=== PATIENT | female | born 1990 | race Caucasian/White ===

== ENCOUNTER 2018-06-09 12:14 | Emergency (ER) | payer SELFPAY ==
--- NOTE | 2018-06-09 13:13 | UC ---
Skin Complaint HPI - HPI Summary HPI Summary: Patient has been self treating 2 lesions on the left leg with tramcinolone cream with no improvement. the area is itchy and now raised. - History of Current Complaint Chief Complaint: UCRash Time Seen by Provider: 06/09/18 13:07 Stated Complaint: RASH L LEG Hx Obtained From: Patient ?: No Onset/Duration: Gradual Onset, Lasting Weeks Skin Exposure Onset/Duration: Weeks Ago Timing: Constant Onset Severity: Mild Current Severity: Moderate Pain Intensity: 0 Location: Discrete Character: Pruritus, Redness, Raised, Painful Aggravating Factor(s): Nothing Alleviating Factor(s): Nothing - Allergy/Home Medications Allergies/Adverse Reactions: Allergies Allergy/AdvReac Type Severity Reaction Status Date / Time No Known Allergies Allergy Verified 06/09/18 13:04 Review of Systems Constitutional: Negative Skin: Rash Eyes: Negative ENT: Negative Respiratory: Negative Cardiovascular: Negative Gastrointestinal: Negative Genitourinary: Negative Motor: Negative Neurovascular: Negative Musculoskeletal: Negative Neurological: Negative Psychological: Negative Is Patient Immunocompromised?: No All Other Systems Reviewed And Are Negative: Yes PMH/Surg Hx/FS Hx/Imm Hx Previously Healthy: Yes - Surgical History Surgical History: None - Family History Known Family History: Positive: Hypertension - Social History Alcohol Use: Weekly Substance Use Type: None Smoking Status (MU): Never Smoked Tobacco - Immunization History Most Recent Influenza Vaccination: pt doesn't know Most Recent Tetanus Shot: pt doesn't know Most Recent Pneumonia Vaccination: pt doesn't know Physical Exam Triage Information Reviewed: Yes Appearance: Well-Appearing, Well-Nourished, Pain Distress Vital Signs: Initial Vital Signs Temp 97.9 F 06/09/18 13:02 Pulse 88 06/09/18 13:02 Resp 18 06/09/18 13:02 BP 150/101 06/09/18 13:02 Pulse Ox 100 06/09/18 13:02 Vital Signs Reviewed: Yes Eye Exam: Normal ENT Exam: Normal Dental Exam: Normal Neck exam: Normal Neck: Positive: Supple, Nontender, No Lymphadenopathy Respiratory Exam: Normal Respiratory: Positive: Chest non-tender, Lungs clear, Normal breath sounds Cardiovascular Exam: Normal Cardiovascular: Positive: RRR, No Murmur, Pulses Normal Abdominal Exam: Normal Abdomen Description: Positive: Nontender, No Organomegaly, Soft Musculoskeletal Exam: Normal Neurological Exam: Normal Psychological Exam: Normal Skin: Positive: rashes - 2 large leasions, red edges with pale scaling centers Course/Dx - Course Course Of Treatment: hx obtained, exam performed ,meds reviewed, treated for ringworm - Differential Diagnoses - Skin Complaint Differential Diagnoses: Cellulitis, Contact Dermatitis, Tinea, Urticaria - Diagnoses Provider Diagnoses: tinea corporis Discharge - Sign-Out/Discharge Documenting (check all that apply): Patient Departure - Discharge Plan Condition: Stable Disposition: HOME Prescriptions: Fluconazole [Diflucan 150 MG (NF)] 150 mg PO WEEKLY #3 tab Patient Education Materials: Skin Yeast Infection (ED) Referrals: Janneth Navarrete MD [Primary Care Provider] - Additional Instructions: 1. take the difulcan 2. Use Coconut oil multiple times a day or Over the counter fungal cream, lamasil as directed 3. follow up if not improving. 4. Your blood pressure is very high, continue to monitor and follow up with your doctor to reassess. - Billing Disposition and Condition Condition: STABLE Disposition: Home
[2018-06-09 13:49] VITALS: BP 156/97
== END 2018-06-09 13:15 | disposition home or self-care (01) ==
LOC: UCEAST 12:14
DX: B35.4 Tinea corporis (principal)
CPT/HCPCS: 99212; G0463

== ENCOUNTER 2020-01-15 13:58 | Emergency (ER) | payer BC ==
--- NOTE | 2020-01-15 15:22 | ED ---
Abdominal Pain/Female - HPI Summary HPI Summary: 29 year old F presenting to [facility] complains of right sided abdominal pain rated 6/10 in severity that radiates into the middle of her abdomen when she ambulates x1 month. Had IUD placed May 2019. Developed abdominal pain one month ago. Had positive test today. . She has one son who was delivered vaginally by Dr. Santos. No complications with that . No vaginal bleeding currently. Symptoms aggravated by ambulation. Symptoms alleviated by nothing. Medications reviewed. Allergies noted. - History of Current Complaint Chief Complaint: EDOBProblems Stated Complaint: IUD/PREG W/PAIN PER PT Time Seen by Provider: 01/15/20 15:19 Hx Obtained From: Patient Onset/Duration: Lasting Weeks - 4, Still Present Timing: Constant Severity Currently: Moderate Pain Intensity: 6 Pain Scale Used: 0-10 Numeric Aggravating Factor(s): Nothing Alleviating Factor(s): Nothing Associated Signs and Symptoms: Negative: Vaginal Bleeding Allergies/Adverse Reactions: Allergies Allergy/AdvReac Type Severity Reaction Status Date / Time No Known Allergies Allergy Verified 01/15/20 14:04 Home Medications: Home Medications Fluconazole [Diflucan 150 MG (NF)] 150 mg PO WEEKLY #3 tab 06/09/18 [Rx] Cephalexin CAP* [Keflex CAP*] 500 mg PO BID 5 Days #10 cap 01/15/20 [Rx] PMH/Surg Hx/FS Hx/Imm Hx Endocrine/Hematology History: Denies: Hx Diabetes Respiratory History: Denies: Hx Asthma - Surgical History Surgical History: None Infectious Disease History: No Infectious Disease History: Denies: Traveled Outside the [place] in Last 30 Days - Family History Known Family History: Positive: Hypertension, Other - thyroid - Social History Alcohol Use: Weekly Substance Use Type: Reports: None Hx Tobacco Use: No Smoking Status (MU): Never Smoked Tobacco Review of Systems Positive: Abdominal Pain Genitourinary: Negative - vaginal bleeding All Other Systems Reviewed And Are Negative: Yes Physical Exam - Summary Physical Exam Summary: Constitutional: Well-developed, Well-nourished, Alert. (-) Distressed Skin: Warm, Dry HENT: Normocephalic; Atraumatic Eyes: Conjunctiva normal Neck: Musculoskeletal ROM normal neck. (-) JVD, (-) Stridor, (-) Nuchal rigidity Cardio: Rhythm regular, rate normal, Heart sounds normal; Intact distal pulses; Radial pulses are 2+ and symmetric. (-) Murmur Pulmonary/Chest wall: Effort normal. (-) Respiratory distress, (-) Wheezes, (-) Rales Abd: Soft, RLQ tenderness, (-) Distension, (-) Guarding, (-) Rebound Musculoskeletal: (-) Edema Lymph: (-) Cervical adenopathy Neuro: Alert, Oriented x3 Psych: Mood and affect Normal Triage Information Reviewed: Yes Vital Signs On Initial Exam: Initial Vitals Temp Pulse Resp BP Pulse Ox 98.6 F 79 16 165/121 99 01/15/20 14:00 01/15/20 14:00 01/15/20 14:00 01/15/20 14:00 01/15/20 14:00 Vital Signs Reviewed: Yes Procedures - Sedation Patient Received Moderate/Deep Sedation with Procedure: No Diagnostics - Vital Signs Vital Signs Temp Pulse Resp BP Pulse Ox 01/15/20 14:00 98.6 F 79 16 165/121 99 - Laboratory Result Diagrams: 01/15/20 15:33 01/15/20 15:33 Lab Statement: Any lab studies that have been ordered have been reviewed, and results considered in the medical decision making process. - Ultrasound Ultrasound Interpretation Completed By: Radiologist - IMPRESSION: There is a single intrauterine gestation with a gestational age of 24 weeks 0 days. Estimated date of delivery is May 06, 2020. survey is unremarkable. heart activity is noted at 153 bpm. Amniotic fluid is within normal limits. There is a fundal placenta without evidence of placenta previa. ED physician has reviewed this imaging report. Re-Evaluation - Re-Evaluation First Eval Re-Evaluation Time: 16:15 - Blood pressure 132/81 per aide Second Eval Re-Evaluation Time: 16:52 - Dr. Kinney recommends d/c and f/u with Dr. Santos Abdominal Pain Fem Course/Dx - Course Course Of Treatment: 29 y/o F p/w RLQ and generalized abdominal pain. - Exam well appearing, mild RLQ tenderness/lower abd tenderness. - US with 24 week IUP no IUD seen. Updated patient on results. Labs w mild leukocytosis likely 2/ 2 . UA w bacteruria. Do not suspect appendicitis. OB saw in ED, agree w outpatient plan. given keflex - Diagnoses Provider Diagnoses: Abdominal pain, , Bacteriuria - Provider Notifications Discussed Care Of Patient With: Kevin Kinney JR - Will speak to Dr. Santos. Time Discussed With Above Provider: 16:22 Discharge ED - Sign-Out/Discharge Documenting (check all that apply): Patient Departure - Discharge Plan Condition: Stable Disposition: HOME Prescriptions: Cephalexin CAP* [Keflex CAP*] 500 mg PO BID 5 Days #10 cap Patient Education Materials: (ED), Urinary Tract Infection in (ED) Referrals: Janneth Navarrete MD [Primary Care Provider] - Sukumar Santos MD [Medical Doctor] - Additional Instructions: You were seen in the emergency department for abdominal pain. You are 24 weeks Please follow-up with OB. Please follow up with your primary care doctor in next 2-3 days and return to emergency department for worsening abdominal pain, vaginal bleeding, fevers, or concerning symptoms. It was a pleasure taking care of you today. - Billing Disposition and Condition Condition: STABLE Disposition: Home - Attestation Statements Document Initiated by Scribe: Yes Documenting Scribe: Adriana Dean Provider For Whom Eveibe is Documenting (Include Credential): Caro Easley MD Scribe Attestation: I, Adriana Dean, scribed for Caro Easley MD on 01/15/20 at 1710. Scribe Documentation Reviewed: Yes Provider Attestation: The documentation as recorded by the Adriana blank accurately reflects the service I personally performed and the decisions made by me, Caro Easley MD Status of Scribe Document: Viewed
[2020-01-15 15:37] LABS: Urine Appearance Clear; Urine Bilirubin Negative (Negative); Urine Blood 1+ (Negative); Urine Color Yellow; Urine Glucose Negative (Negative); Urine Ketones Negative (Negative); Urine Nitrite Negative (Negative); Urine Protein Negative (Negative); Urine Urobilinogen Negative (Negative)
[2020-01-15 15:40] LABS: ABS Basophils 0.1 10^3/ul (0-0.2); ABS Eosinophils 0.2 10^3/ul (0-0.6); ABS Lymphocytes 2.2 10^3/ul (1.0-4.8); ABS Monocytes 0.6 10^3/ul (0-0.8); ABS Neutrophils 8.8 10^3/ul (1.5-7.7); Eosinophil % 1.7 %; Hematocrit 39 % (35-47); Hemoglobin 13.6 g/dL (12.0-16.0); Mean Corpuscular HGB Conc 35 g/dL (31-36); Mean Corpuscular Hemoglobin 31 pg (27-31); Mean Corpuscular Volume 88 fL (80-97); Nucleated Red Blood Cells % 0.1; Platelet Count 181 10^3/uL (150-450); Red Blood Count 4.44 10^6 /uL (3.70-4.87); Red Cell Distribution Width 14 % (10-15); White Blood Count 11.9 10^3/uL (3.5-10.8)
[2020-01-15 15:41] LABS: Urine Bacteria 1+ (Absent); Urine Red Blood Cell Trace(0-2/hpf) (Absent); Urine Squamous Epithelial Cell Present (Absent); Urine White Blood Cell Trace(0-5/hpf) (Absent)
--- OUTSIDE RECORDS SUMMARY | 2020-01-15 15:42 | XMS REPORT | Summary of Care ---
:1990 Author Organization [facility] Address [address] [facility] [place] [address] Care Team Providers Name Role Phone Darwinsirena Janneth Primary Care Provider Reason for Visit Reason Comments Surgical Followup Encounter Details Date Type Department Care Team Description 11/26/2019 Office Visit Mark PlasticSilver Mooney MD Surgical followup Surgery [address] [place] (Primary Dx) 1 [facility] [place] [address] [place] [id number] Allergies Active Allergy Reactions Severity Noted Date Comments No Known Drug Allergy 12/11/2007 documented as of this encounter (statuses as of 11/26/2019) Medications Medication Sig Dispensed Refills Start Date End Date Status OXYcodone-acetaminophe Take 1 Tab by 15 Tab 0 11/14/2019 Active n (PERCOCET) 5-325 MG mouth EVERY EIGHT Oral Tab HOURS NEEDED (pain). Max Daily Amount: 3 Tabs. cephalexin (KEFLEX) Take 1 Cap by 21 Cap 0 11/14/2019 Active 500 MG Oral Cap mouth THREE TIMES DAILY. 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 Ulnar collateral ligament sprain(841.1) 11/30/2010 Dislocation, elbow closed 11/30/2010 Migraine 12/11/2007 Seasonal allergies 12/11/2007 Asthma 12/11/2007 Hypertrophy of nasal turbinates 09/23/2007 Epistaxis 02/28/2007 documented as of this encounter (statuses as of 11/26/2019) Resolved Problems Problem Noted Date Resolved Date Shortness of breath 11/13/2018 11/13/2018 documented as of this encounter (statuses as of 11/26/2019) Immunizations Name Administration Dates Next Due DTAP Vaccine 05/24/1995, 04/09/1991, 07/03/1990, 04/15/1990, 01/14/1990 HIB 12/09/1990 Hepatitis B Vaccine 10/15/1997, 07/17/1997 Human Papillomavirus 09/23/2007, 05/23/2007, 03/28/2007 MENINGOCOCCAL CONJUGATE VACCINE 04/17/2008 MMR VACCINE 05/24/1995, 12/09/1990 Poliomyelitis vaccine 05/24/1995, 04/09/1991, 04/15/1990, 01/14/1990 TETANUS & DIPHTHERIA TOXOID (OVER 7 05/07/2005 YRS) documented as of this encounter Social History Tobacco Use Types Packs/Day Years Used Date Never Smoker Smokeless Tobacco: Never Used Alcohol Use Drinks/Week oz/Week Comments Yes occAS Sex Assigned at Date Recorded Not on file Job Start Date Occupation Industry Not on file Not on file Not on file Travel History Travel Start Travel End No recent travel history available. documented as of this encounter Last Filed Vital Signs Not on filedocumented in this encounter Progress Notes Silver Sandoval MD - 11/26/2019 2:30 PM ESTPATIENT: Derian Robin : 1990 DATE OF SERVICE: 11/26/2019 Left shoulder sutures removed Mastasol and steristrips applied RTC prn. Author: Silver Sandoval MD 11/26/2019 14:52 documented in this encounter Plan of Treatment Health Maintenance Due Date Last Done Comments DTaP/Tdap/Td Vaccines (7 - 05/07/2015 05/07/2005, 05/24/1995, Tdap) 04/09/1991, Additional history exists INFLUENZA VACCINE (#1) 2019 PAP SMEAR 10/31/2019 10/31/2016, 12/26/2010 DEPRESSION SCREENING 11/04/2020 11/04/2019 HPV IMMUNIZATION SERIES Completed 09/23/2007, 05/23/2007, 03/28/2007 MENINGOCOCCAL VACCINE IMM Completed 04/17/2008 HEPATITIS A IMMUNIZATION Aged Out No longer eligible SERIES based on patient's age to complete this topic PNEUMOCOCCAL 0-64 YRS Aged Out No longer eligible based on patient's age to complete this topic documented as of this encounter Results Not on filedocumented in this encounter Visit Diagnoses Diagnosis Surgical followup Follow-up examination, following unspecified surgery documented in this encounter Insurance Payer Benefit Plan / Subscriber ID Effective Dates Phone Address Type Group [employer] xxxxxxxxxxxx 2019-Present [employer] (Home) [phone] (Work) [place] [address] documented as of this encounter Advance Directives Type Date Recorded 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
--- OUTSIDE RECORDS SUMMARY | 2020-01-15 15:42 | XMS REPORT | Summary of Care ---
:1990 Author Organization [facility] Address [address] [facility] [place] [address] Care Team Providers Name Role Phone Darwinsirena Janneth Primary Care Provider Reason for Visit Reason Comments Surgical Followup Encounter Details Date Type Department Care Team Description 11/20/2019 Office Visit Mark PlasticSilver Mooney MD Surgical followup Surgery [address] [place] (Primary Dx) 1 [facility] [place] [address] [place] [phone] Allergies Active Allergy Reactions Severity Noted Date Comments No Known Drug Allergy 12/11/2007 documented as of this encounter (statuses as of 11/20/2019) Medications Medication Sig Dispensed Refills Start Date [...] as of this encounter (statuses as of 11/20/2019) Active Problems Problem Noted Date Hemangioma 10/30/2019 Overview: Added automatically from request for surgery [id number] Left shoulder pain 01/05/2014 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 Ulnar collateral ligament sprain(841.1) 11/30/2010 Dislocation, elbow closed 11/30/2010 Migraine 12/11/2007 Seasonal allergies 12/11/2007 Asthma 12/11/2007 Hypertrophy of nasal turbinates 09/23/2007 Epistaxis 02/28/2007 documented as of this encounter (statuses as of 11/20/2019) Resolved Problems Problem Noted Date Resolved Date Shortness of breath 11/13/2018 11/13/2018 documented as of this encounter (statuses as of 11/20/2019) Immunizations Name Administration Dates Next Due DTAP [...] encounter Progress Notes Silver Sandoval MD - 11/20/2019 8:30 AM ESTPATIENT: Derian Robin : 1990 DATE OF SERVICE: 11/20/2019 Incision clean dry and intact Sutures to remain in situ Need another week Continue antibiotic ointment Continue daily washing soap and water Refrain from strenuous activity RTC in 1 week Author: Silver Sandoval MD 11/20/2019 11:12 documented in this encounter Plan of Treatment Date Type Specialty Care Team Description 11/26/2019 Plastic Surg Nurse/clinical support Plastic Surgery Health Maintenance Due Date Last Done Comments [...] ID Effective Dates Phone Address Type Group [employer] M[employer] xxxxxxxxxxxx 2019-Present [employer] documented as of this encounter Advance Directives Type Date Recorded 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
[2020-01-15 15:57] LABS: Albumin/Globulin Ratio 1.3 (1-3); BUN/Creatinine Ratio 12.7 (8-20); Calcium 9.4 mg/dL (8.6-10.3); EGFR African American 134.3 (>60); Globulin 3.1 g/dL (2-4); Potassium 3.5 mmol/L (3.5-5.0); Total Bilirubin 0.4 mg/dL (0.2-1.0); Total Protein 7.1 g/dL (6.4-8.9)
[2020-01-15 17:04] VITALS: BP 143/93
--- NOTE | 2020-01-15 17:05 | PN ---
Progress Note - Progress Note Date of Service: 01/15/20 Note: Pt is a 29 y/o who presented to the ED with complain of RLQ pain x 1 month that is inermittent, occasionally bilateral, occasional . Found to have IUP measuring ~ 24 weeks on USN. Pt reports having had IUD placed in outpatient setting in early June. There is no evidence of IUD on USN. Notified of patient by ED attending, I presented to the ED to discuss options for next steps with patient. The description of her discomfort is most consistent with round ligament pain. On exam her abdomen is soft, nd, nttp, no rebound, no guarding, she does not have an acute abdomen. Her exam is otherwise benign. We discussed that we could obtain a plain film xray in an attempt to further determine the location of the IUD, but that this would not change the patient's management at this time, as their is no indication for emergent laparoscopy for IUD removal if IUD is indeed found to be intraperitoneal and emergent laparoscopy and attempt to remove IUD may pose risk to . Pt agrees that follow up in the outpatient setting is reasonable. She agrees to call her OB tomorrow to schedule initial NOB appointment. Will discuss with provider in outside setting risks versus benefits of continued attempt to localize IUD now versus after . Pt expresses agreement to and understanding of plan. ED provider to treat empirically for psb UTI, and send urine for Ucx; agree this is reasonable. Rich Kinney, OBGYAnirudh
== END 2020-01-15 17:03 | disposition home or self-care (01) ==
LOC: ED 13:58
DX: R10.31 Right lower quadrant pain (principal); R82.71 Bacteriuria; Z33.1 Pregnant state, incidental
CPT/HCPCS: 36415; 76805; 80053; 81003; 81015; 84702; 85025; 86850; 86900; 86901; 87086; 99282

== ENCOUNTER 2020-05-03 13:44 | Inpatient (IN) ==
[2020-05-03] MEDS ORDERED: Lactated Ringers 1000 ml BAG 1,000 ML IV ONE ×2 (15:09→18:37)
[2020-05-03] MEDS ORDERED: Lactated Ringers 1000 ml BAG 1,000 ML IV SCH ×2 (16:00→19:00)
[2020-05-03] MEDS ORDERED: Oxytocin in LR 20 UNITS/1,000 ML BAG IVPB SCH ×2 (16:00→20:00)
[2020-05-03 16:14] LABS: ABS Basophils 0.1 10^3/ul (0-0.2); ABS Eosinophils 0.1 10^3/ul (0-0.6); ABS Lymphocytes 1.9 10^3/ul (1.0-4.8); ABS Monocytes 0.7 10^3/ul (0-0.8); Eosinophil % 1.5 %; Hematocrit 33 % (35-47); Hemoglobin 11.8 g/dL (12.0-16.0); Lymphocyte % 21.3 %; Mean Corpuscular HGB Conc 35 g/dL (31-36); Mean Corpuscular Hemoglobin 29 pg (27-31); Mean Corpuscular Volume 82 fL (80-97); Mean Platelet Volume 9.3 fL (7.4-10.4); Platelet Count 169 10^3/uL (150-450); Red Blood Count 4.09 10^6 /uL (3.70-4.87); Red Cell Distribution Width 14 % (10-15); White Blood Count 9.1 10^3/uL (3.5-10.8)
[2020-05-03 17:09] LABS: Albumin 3.6 g/dL (3.2-5.2); Albumin/Globulin Ratio 1.3 (1-3); BUN/Creatinine Ratio 11.5 (8-20); Calcium 8.5 mg/dL (8.6-10.3); EGFR African American 139.3 (>60); EGFR Non-African American 115.2 (>60); Globulin 2.7 g/dL (2-4); Potassium 3.7 mmol/L (3.5-5.0); Total Bilirubin 0.4 mg/dL (0.2-1.0); Total Protein 6.3 g/dL (6.4-8.9)
[2020-05-03 17:13] LABS: Urine Benzodiazepine Screen None Detected (None Detect); Urine Opiates Screen None Detected (None Detect)
[2020-05-03] MEDS ORDERED: OBEPIDURAL 250 ML EPIDURAL ONE (17:50)
[2020-05-03] MEDS ORDERED: Sodium Citrate/Citric Acid LIQ 15 ML UDC PO PRN (18:37)
[2020-05-03] MEDS ORDERED: EPHEDrine (Pressors) 50 MG/ML VIAL IV PUSH PRN (18:43)
[2020-05-03] MEDS ORDERED: Lactated Ringers 1000 ml BAG 500 ML IV PRN (18:43)
[2020-05-03] MEDS ORDERED: Phenylephrine 40 mcg/mL 10mL (400mcg) SYRINGE IV PUSH PRN (18:43)
[2020-05-03] MEDS ORDERED: OBEPIDURAL 250 ML EPIDURAL SCH (19:00)
[2020-05-03] MEDS ORDERED: Tetan/Diph/Pertus SYR(Tdap)* 0.5 ML SYR(BOOSTRIX) use SYR contains LATEX IM ONE (19:22)
[2020-05-03] MEDS ORDERED: Dibucaine 1% OINT 28.35 GM TUBE PR PRN (19:22)
[2020-05-03] MEDS ORDERED: Witch Hazel PAD JAR TOPICAL PRN (19:22)
[2020-05-03] MEDS ORDERED: Varicella Virus Vaccine Live 0.5 ML VIAL SUBCUT ONE (19:22)
[2020-05-03] MEDS ORDERED: Glycerin ADULT 2.4 gm SUPP PR PRN (19:22)
[2020-05-04 06:46] LABS: ABS Eosinophils 0.1 10^3/ul (0-0.6); ABS Lymphocytes 1.9 10^3/ul (1.0-4.8); ABS Monocytes 0.8 10^3/ul (0-0.8); Eosinophil % 0.8 %; Hematocrit 29 % (35-47); Hemoglobin 10.3 g/dL (12.0-16.0); Lymphocyte % 17.2 %; Mean Corpuscular HGB Conc 35 g/dL (31-36); Mean Corpuscular Hemoglobin 29 pg (27-31); Mean Corpuscular Volume 81 fL (80-97); Mean Platelet Volume 8.7 fL (7.4-10.4); Platelet Count 152 10^3/uL (150-450); Red Cell Distribution Width 14 % (10-15); White Blood Count 11.1 10^3/uL (3.5-10.8)
[2020-05-05 07:40] VITALS: BP 147/80
== END 2020-05-05 12:14 | disposition home or self-care (01) | DRG 560 ==
LOC: MCHOBOUT 13:44 → MCHOB 15:06
PROVIDERS: ADMIT Obstetrics & Gynecology; ATTEND Obstetrics & Gynecology

== ENCOUNTER 2021-11-10 19:39 | Observation (INO) ==
[2021-11-10] MEDS ORDERED: Lactated Ringers 1000 ml BAG 1,000 ML IV ONE (20:58)
[2021-11-10 22:23] LABS: ABS Monocytes 0.5 10^3/ul (0-0.8); Eosinophil % 0.2 %; Hematocrit 41 % (35-47); Hemoglobin 14.4 g/dL (12.0-16.0); Lymphocyte % 35.6 %; Mean Corpuscular HGB Conc 35 g/dL (31-36); Mean Corpuscular Hemoglobin 29 pg (27-31); Mean Corpuscular Volume 83 fL (80-97); Mean Platelet Volume 8.5 fL (7.4-10.4); Platelet Count 132 10^3/uL (150-450); Red Blood Count 4.91 10^6 /uL (3.70-4.87); Red Cell Distribution Width 13 % (10-15); White Blood Count 5.5 10^3/uL (3.5-10.8)
[2021-11-10 22:41] LABS: ALT 25 U/L (7-52); AST 27 U/L (13-39); Albumin 4.1 g/dL (3.2-5.2); Albumin/Globulin Ratio 1.5 (1-3); Alkaline Phosphatase 52 U/L (35-149); Anion Gap 7 mmol/L (2-11); Blood Urea Nitrogen 8 mg/dL (6-24); CO2 Carbon Dioxide 29 mmol/L (22-32); Calcium 8.9 mg/dL (8.6-10.3); Chloride 104 mmol/L (101-111); Creatine Kinase 217 U/L (10-223); Globulin 2.8 g/dL (2-4); Glucose 95 mg/dL (70-100); Magnesium 1.9 mg/dL (1.9-2.7); Potassium 3.2 mmol/L (3.5-5.0); Sodium 140 mmol/L (135-145); Total Protein 6.9 g/dL (6.4-8.9); Troponin I 0.01 ng/mL (<0.03); eGFR CKD-EPI 113.9 (>60)
[2021-11-10] MEDS ORDERED: Iohexol 350 (CONTRAST) 500 ML MDV IV ONE (22:43)
[2021-11-10 22:45] LABS: HCG Pregnancy < 0.60 mIU/mL
[2021-11-10 22:53] LABS: Influenza A Molecular Negative (Negative); Influenza B Molecular Negative (Negative); Rapid COVID-19 Molecular Undetected (Undetected)
[2021-11-11] MEDS ORDERED: Albuterol HFA INHALER 8 gm MDI INH ONE (00:15)
[2021-11-11] MEDS ORDERED: Dexamethasone IV 4 MG/ML VIAL 1 ml VIAL IV SLOW PU ONE (01:25)
[2021-11-11] MEDS ORDERED: Potassium Chlor 20 meq TAB.ER PO ONE (01:25)
[2021-11-11] MEDS ORDERED: Remdesivir 100 mg Vial 200 MG in NS 0.9% 250 ml 210 ML IV ONE (03:15)
[2021-11-11] MEDS: Enoxaparin 40 MG/0.4 ML SYR SUBCUT SCH (10:29)
[2021-11-12 07:26] LABS: ABS Lymphocytes 1.4 10^3/ul (1.0-4.8); ABS Monocytes 0.6 10^3/ul (0-0.8); ABS Neutrophils 5.1 10^3/ul (1.5-7.7); Hematocrit 41 % (35-47); Hemoglobin 14.5 g/dL (12.0-16.0); Lymphocyte % 19.6 %; Mean Corpuscular HGB Conc 35 g/dL (31-36); Mean Corpuscular Hemoglobin 30 pg (27-31); Mean Corpuscular Volume 84 fL (80-97); Mean Platelet Volume 8.8 fL (7.4-10.4); Platelet Count 204 10^3/uL (150-450); Red Blood Count 4.91 10^6 /uL (3.70-4.87); Red Cell Distribution Width 14 % (10-15); White Blood Count 7.1 10^3/uL (3.5-10.8)
[2021-11-12 07:48] LABS: Calcium 8.8 mg/dL (8.6-10.3); Potassium 3.7 mmol/L (3.5-5.0); eGFR CKD-EPI 113.9 (>60)
[2021-11-12] MEDS ORDERED: Remdesivir 100 mg Vial 100 MG in NS 0.9% 250 ml 230 ML IV SCH (09:00)
[2021-11-12] MEDS: Enoxaparin 40 MG/0.4 ML SYR SUBCUT SCH (09:52)
[2021-11-12 12:25] VITALS: BP 148/95
== END 2021-11-12 14:28 | disposition home or self-care (01) ==
LOC: ED 19:39 → EDHOLD 19:39 → SUATTDRO 11-11 02:54 → MED 11-11 04:27
PROVIDERS: ADMIT Internal Medicine; ATTEND Internal Medicine